=== PATIENT | female | born 1980 | race Caucasian/White ===

== ENCOUNTER → 2016-11-15 | Outpatient (CLI) | payer OTHER ==
[~2016-11-15] VITALS: Ht 165.1 cm; Wt 83.9 kg
[~2016-11-15] MED LIST: CITA40TA12 PO; DIAZ5TAB PO; ESTR2TAB PO; GABA600T2 PO; HYDR-2766 PO; MEDR5TAB PO; SINCALIDE 1.68 MCG in IV NORMAL SALINE 50ML 30 ML IV ONE; TYLENOL PM; VALIUM10 MG PO
--- NOTE | 2016-11-15 10:34 | RAD ---
Radionuclide hepatobiliary scan with gallbladder ejection fraction, 11/15/2016: History: Right upper quadrant pain Following IV injection of 5.5 mCi of technetium 99m Choletec there was prompt uptake of the radionuclide from the blood stream by the liver. Activity is present in the bile ducts and gallbladder at 15 minutes with extension into the small bowel at 20 minutes. Additional imaging was then performed following IV injection of 1.7 mcg of cholecystokinin. The gallbladder ejection fraction is 41%. 30-50% is considered be the borderline low range. IMPRESSION: 1. No evidence of cystic duct or common bile duct obstruction. 2. The gallbladder ejection fraction is 41%.
== END | disposition home or self-care (01) ==
LOC: NM 07:51
PROVIDERS: ATTEND Nurse Practitioner Family
DX: R10.11 Right upper quadrant pain (principal)
CPT/HCPCS: 78226; 96374; 96375; A9537; J2805

== ENCOUNTER → 2018-05-25 | Outpatient (CLI) | payer OTHER ==
[~2018-05-25] MED LIST changes: -HYDR-2766 PO; +HYDR-2769 PO; -SINCALIDE 1.68 MCG in IV NORMAL SALINE 50ML 30 ML IV ONE
--- NOTE | 2018-05-25 16:42 | RAD ---
Indication: Chronic low back pain. TECHNIQUE: 2 views of the lumbar spine COMPARISON: None Findings/ impression: There are 5 lumbar type vertebral bodies. No compression deformities. No significant intervertebral disc space narrowing or endplate sclerosis to suggest degenerative disc disease. Right upper quadrant clips suggesting cholecystectomy. SI joints within normal limits. No significant facet arthropathy. Electronically signed by: Bakari Vincent DO (05/25/2018 4:38 PM) [facility]
== END | disposition home or self-care (01) ==
LOC: RAD 09:29
PROVIDERS: ATTEND Surgery
DX: M79.7 Fibromyalgia (principal); M53.86 Other specified dorsopathies, lumbar region
CPT/HCPCS: 72100